=== PATIENT | female | born 1970 | race Caucasian/White ===

== ENCOUNTER → 2016-09-18 | Outpatient (CLI) | payer SELFPAY ==
[2016-09-18 15:58] LABS: CHLORIDE,CL 104 mmol/L (98-110); SODIUM,NA 138 mmol/L (136-146)
== END | disposition home or self-care (01) ==
LOC: MERGE 15:17 → MW.CHOBGYN 15:17
PROVIDERS: ATTEND Nurse Practitioner Women's Health
DX: E55.9 Vitamin D deficiency, unspecified (principal); R53.83 Other fatigue
CPT/HCPCS: 36415; 80053; 82607; 82652; 82728; 83735; 84439; 84443; 85025

== ENCOUNTER → 2016-09-20 | Outpatient (CLI) | payer SELFPAY ==
--- NOTE | 2016-09-21 16:09 | US ---
EXAM DATE: 09/20/16 PATIENT'S AGE: 45 Patient: JUAN WATKINS Facility: [place], [place] Site . Site : 1970 Study: US Pelvis [id number] 2:52:23 PM Ordering Physician: Tahmina Walters Final Report: HISTORY: Pelvic pain. Findings: Multiple grayscale static image from a transvaginal pelvic ultrasound were evaluated. Color and spectral Doppler was used. Uterus measures 9.6 x 3.2 x 4.1 cm. The myometrium is homogeneous. The endometrial stripe is 11 mm. Nabothian cysts are present. There is trace fluid in the cul-de-sac. The right ovary measures 2.6 x 1.5 x 1.6 cm. The right ovary is normal in appearance with normal blood flow. The left ovary measures 3.2 x 1.5 x 1.8 cm. The left ovary is normal an appearance with normal blood flow. Impression: 1. Trace free fluid the pelvis most likely physiologic. 2. Otherwise, normal pelvic ultrasound. Dictated by Melyssa Hernandez MD @ Sep 21 2016 12:58AM (Electronic Signature) Report Signed by Proxy. RUTHIE
== END ==
LOC: MW.US 13:39
PROVIDERS: ATTEND Nurse Practitioner Women's Health
DX: N92.6 Irregular menstruation, unspecified (principal); N94.6 Dysmenorrhea, unspecified
CPT/HCPCS: 76830; 76830-26